=== PATIENT | female | born 1975 | race African-American/Black ===

== ENCOUNTER 2016-12-28 10:43 | Outpatient (CLI) | payer BC, OTHER | END 2016-12-28 23:00 | LOC: LAB SRH 10:43 | DX: Z00.00 Encounter for general adult medical examination without abnormal findings (principal) | CPT/HCPCS: 90004; 90074; 90100; 92690; 93140; 95059 ==

== ENCOUNTER 2017-02-24 08:00 | Outpatient (CLI) | payer BC, OTHER ==
--- NOTE | 2017-02-24 11:13 | DIAGNOSTIC IMAGING REPORT ---
PROCEDURE: MG BILATERAL SCREENING W/CAD INDICATION: Screening. Family history breast carcinoma (mother). TECHNIQUE: Bilateral CC and MLO digital views. COMPARISON: Compared to 01/03/2016, 12/25/2015, and 01/11/2014. FINDINGS: Computer-aided detection applied. Moderately dense and mildly nodular with a few dystrophic calcifications. There is a stable 10 mm nodular density in the medial left breast (previously documented cyst). There has been a thin changed IMPRESSION: 1. Negative mammogram with stable cystic changes in the medial left breast. RESULT CODE: 2- Benign finding(s). A. A negative report should not delay biopsy if a dominant or clinically suspicious mass is present. 10-15% of cancers are not identified by x-ray. B. A negative report may reinforce clinical impression. C. Adenosis and dense breasts may obscure an underlying neoplasm. D. False positive reports average 6-10%. E.. A yearly screening mammogram is recommended. A reminder letter will be scheduled.
== END 2017-02-24 23:00 ==
LOC: MAM SRH 08:00
DX: Z12.31 Encounter for screening mammogram for malignant neoplasm of breast (principal); Z80.3 Family history of malignant neoplasm of breast

== ENCOUNTER → 2017-03-27 | Outpatient (CLI) | payer BC, OTHER ==
--- NOTE | 2017-03-27 10:08 | DIAGNOSTIC IMAGING REPORT ---
PROCEDURE: US COMPLETE PELVIC W/TRANSVAG INDICATION: Abnormal uterine bleeding x 2 weeks. TECHNIQUE: Transabdominal and endovaginal pryor scale and color Doppler sonographic images of the female pelvis were obtained. COMPARISON: Pelvic ultrasound 06/22/2014. FINDINGS: TRANSABDOMINAL SCANS: Anteverted uterus measures 10.2 x 4.1 x 6.1 cm. Right adnexal cyst. Normal right kidney. Left extrarenal pelvis. TRANSVAGINAL SCANS: 1.9 cm right anterior intramuscular questionable fibroid. Endometrium measures 8.2 mm with a 5 mm echogenic focus in the fundus. Right ovary measures 4.3 x 2.3 x 3 cm with a 2.3 cm simple cyst. Left ovary measures 2.9 x 2 x 2.4 cm. There is vascular flow to both ovaries. Trace free fluid the cul-de-sac. IMPRESSION: 1. 1.9 cm questionable fibroid 2. Normal endometrial thickness with a 5 mm echogenic focus in the fundus which may represent blood products or possibly a small polyp. 3. 2.3 cm simple right ovarian cyst
== END ==
LOC: US SRH 07:57
DX: N93.9 Abnormal uterine and vaginal bleeding, unspecified (principal); N83.201 Unspecified ovarian cyst, right side